=== PATIENT | female | born 1980 | race Two or more races ===

== ENCOUNTER 2020-04-15 09:00 | Day surgery (SDC) | payer OTHER ==
[~2020-04-15 09:00] MED LIST: ALBUTERO IH
[2020-04-15] MEDS ORDERED: TYLENOL ARTHRI650 MG PO (15:38)
[2020-04-15] MEDS ORDERED: MIRALAX17 GM PO (15:38)
[2020-04-15] MEDS ORDERED: ULTRAM50 MG PO (15:38)
== END 2020-04-15 18:10 | disposition home or self-care (01) ==
LOC: CIR.AMB 09:00
PROVIDERS: ATTEND Surgery
DX: K42.0 Umbilical hernia with obstruction, without gangrene (principal); Z20.822 Contact with and (suspected) exposure to COVID-19